=== PATIENT | male | born 1960 | race Caucasian/White ===

== ENCOUNTER 2016-05-03 13:37 | Emergency (ER) | payer OTHER ==
[2016-05-03 13:53] VITALS: RESP 16
--- NOTE | 2016-05-03 13:58 | ED ---
General Adult HPI - General Chief complaint: Head Injury Stated complaint: Etoh Time Seen by Provider: 05/03/16 13:40 Source: patient, EMS, RN notes reviewed Mode of arrival: EMS Limitations: no limitations - History of Present Illness Initial comments: This is a 56-year-old male who presents emergency Department stating he went to [facility] to go through alcohol rehabilitation. However on reevaluation he noted that he had a healing wound to his scalp and wanted him to come to the emergency department to be evaluated. Patient states he fell and hit his head on the counter to weeks ago he did not lose consciousness at that time he was bleeding from the scalp. Patient states he did not follow up with any medical evaluation at that time. Patient states he has no headache he denies any numbness weakness. Patient denies lightheadedness dizziness or near syncopal episode. Patient denies any neck pain. Patient denies any chest pain difficulty breathing shortness of breath per patient denies abdominal pain patient denies nausea vomiting or diarrhea per patient states he feels completely normal. - Related Data Allergies Allergy/AdvReac Type Severity Reaction Status Date / Time No Known Allergies Allergy Verified 05/03/16 14:01 Review of Systems ROS Statement: Those systems with pertinent positive or pertinent negative responses have been documented in the HPI. ROS Other: All systems not noted in ROS Statement are negative. Past Medical History Additional Past Medical History / Comment(s): SEASONAL ALLERGIES History of Any Multi-Drug Resistant Organisms: None Reported Past Surgical History: No Surgical Hx Reported Past Psychological History: Anxiety, Depression Smoking Status: Current every day smoker Past Alcohol Use History: Abuse Past Drug Use History: None Reported General Exam - General Exam Comments Initial Comments: GENERAL: Patient is well-developed and well-nourished. Patient is nontoxic and well- hydrated and is in no acute distress. ENT: Neck is soft and supple. No significant lymphadenopathy is noted. Oropharynx is clear. Moist mucous membranes. Neck has full range of motion without eliciting any pain. EYES: The sclera were anicteric and conjunctiva were pink and moist. Extraocular movements were intact and pupils were equal round and reactive to light. Eyelids were unremarkable. PULMONARY: Unlabored respirations. Good breath sounds bilaterally. No audible rales rhonchi or wheezing was noted. CARDIOVASCULAR: There is a regular rate and rhythm without any murmurs gallops or rubs. ABDOMEN: Soft and nontender with normal bowel sounds. No palpable organomegaly was noted. There is no palpable pulsatile mass. SKIN: There is a healing scalp laceration the occipital region a little to the left. Measures about 4 cm in length and it does appear to be healing normally didn't appears to be no signs of infection NEUROLOGIC: Patient is alert and oriented x3. Cranial nerves II through XII are grossly intact. Motor and sensory are also intact. Normal speech, volume and content. Symmetrical smile. MUSCULOSKELETAL: Normal extremities with adequate strength and full range of motion. LYMPHATICS: No significant lymphadenopathy is noted PSYCHIATRIC: Normal psychiatric evaluation. Limitations: no limitations Course Vital Signs 05/03/16 13:46 Temperature 98.1 F Pulse Rate 107 H Respiratory 16 Rate Blood Pressure 152/76 O2 Sat by Pulse 91 L Oximetry Medical Decision Making - Medical Decision Making CT of the brain and C-spine are negative for any acute abnormality. I went back and reevaluate the patient he continued to say he had no symptoms whatsoever he just wanted to be discharged to go follow-up with [facility]. Disposition Clinical Impression: Alcohol abuse, Head injury Disposition: HOME SELF-CARE Condition: Good Instructions: Head Injury (ED) Additional Instructions: Patient should follow-up with [facility] [place] Referrals: Nonstaff,Physician [Primary Care Provider] - 1-2 days Time of Disposition: 14:59
--- NOTE | 2016-05-03 14:40 | CT ---
EXAMINATION TYPE: CT brain cspine wo con DATE OF EXAM: 05/03/2016 2:23 PM COMPARISON: NONE HISTORY: 56-year-old male with ETOH and pain CT DLP: Brain (1145.10) and C-spine (581.70) mGycm Automated exposure control for dose reduction was used. Technique: Examination of the head was done in axial plane without intravenous contrast. Coronal and sagittal reconstructions performed. CT of the cervical spine was obtained in axial plane without intravenous injection of contrast mater ial. Coronal and sagittal reformatted images were obtained from the axial views for evaluation of f ractures, spinal alignment and canal. FINDINGS: Head: There is no evidence of acute intracranial hemorrhage, acute ischemic changes, mass, mass-effect, or extra-axial fluid collection. There is no effacement of cerebral sulci or basal subarachnoid cister ns. There is no hydrocephalus. There is no midline shift. Nieves-white matter distinction is preserv ed. Mild generalized supratentorial volume loss. Paranasal sinuses show mild mucosal thickening in the ethmoid air cells and maxillary sinuses. Mastoi d air cells well pneumatized. Patient's gaze is divergent. Cervical spine: Craniocervical junction are mildly, predental space widening, or prevertebral soft tissue swelling. There is normal alignment of the cervical spine. No acute fracture is identified. Moderate disc sessi on. Degenerative change mid to lower cervical spine with disc osteophyte complexes at C5-C6 and C6-C7 causing mild spinal canal stenoses. Additional scattered facet and uncovertebral joint arthropathy is present and causes variable mild to moderate neuroforaminal stenoses. Heterogeneity of the thyroid gland suggests underlying nodules, one of which is calcified on the left measuring up to 1 cm. This can be evaluated with dedicated thyroid ultrasound if indicated. Visualiz ed upper lungs show emphysematous change. Sagittal and coronal reformatted images confirm above findings. COMBINED IMPRESSION: 1. No acute intracranial abnormality seen. Mild cerebral atrophy. 2. No acute fracture or malalignment of the cervical spine. Mild to moderate spondylotic change. 3. Mild chronic maxillary and ethmoid sinus disease, divergent gaze suggesting underlying strabismus, underlying thyroid nodules which can be evaluated with nonemergent thyroid ultrasound, and emphysema .
[2016-05-03 15:26] VITALS: BP 110/59; PULSE 96; TEMP 97.6
== END 2016-05-03 15:20 | disposition home or self-care (01) ==
LOC: EC 13:37
DX: F10.10 Alcohol abuse, uncomplicated (principal); S09.90XA Unspecified injury of head, initial encounter; S01.01XA Laceration without foreign body of scalp, initial encounter; W19.XXXA Unspecified fall, initial encounter; F17.200 Nicotine dependence, unspecified, uncomplicated
CPT/HCPCS: 70450; 72125; 99284

== ENCOUNTER 2016-05-12 14:23 | Emergency (ER) | payer OTHER ==
[2016-05-12] MEDS ORDERED: SODIUM CHLORIDE 0.9% 1,000 ML IV STA (15:34)
[2016-05-12 16:01] LABS: Basophils # (A) 0.1 k/uL (0-0.2); Basophils % (A) 1 %; CH 32.6; CHCM 33.4; Eosinophils # (A) 0.1 k/uL (0-0.7); Eosinophils % (A) 1 %; HCT 44.9 % (39.0-53.0); HGB 14.2 gm/dL (13.0-17.5); Luc % (Auto) 1; Lymphocytes # (A) 0.8 k/uL (1.0-4.8); Lymphocytes % (A) 6 %; MCHC 31.7 g/dL (31.0-37.0); MCV 97.9 fL (80.0-100.0); Mean Platelet Volume 9.4; Monocytes # (A) 1.2 k/uL (0-1.0); Monocytes % (A) 9 %; Neutrophils # (A) 10.8 k/uL (1.3-7.7); Neutrophils % (A) 83 %; RBC 4.58 m/uL (4.30-5.90); RDW 14.5 % (11.5-15.5); WBC (Perox) 13.49
[2016-05-12 16:08] LABS: ALT 242 U/L (21-72); AST 109 U/L (17-59); Alkaline Phosphatase 132 U/L (38-126); Anion Gap 12 mmol/L; Blood Urea Nitrogen 21 mg/dL (9-20); Calcium 9.4 mg/dL (8.4-10.2); Carbon Dioxide 26 mmol/L (22-30); Chloride 105 mmol/L (98-107); Glucose 84 mg/dL (74-99); Non-African American GFR(MDRD) >60 (>60 ml/min/1.73 sqM); Sodium 143 mmol/L (137-145); Total Bilirubin 1.2 mg/dL (0.2-1.3); Total Protein 7.2 g/dL (6.3-8.2)
--- NOTE | 2016-05-12 16:08 | CT ---
EXAMINATION TYPE: CT brain wo con DATE OF EXAM: 05/12/2016 4:01 PM COMPARISON: Prior head CT 03 May 2016 HISTORY: History of seizures. [address] DLP: 1012.70 mGycm Automated exposure control for dose reduction was used. FINDINGS: There is no acute intracranial hemorrhage, mass effect, or midline shift identified. The ventricles and sulci are within normal limits in size. The globes are intact and the visualized sinuses are sta ble, possible mucus retention cyst in the antrum of the left maxillary sinus. Cortical atrophy and pe riventricular white matter low-attenuation are stable. IMPRESSION: No acute intracranial hemorrhage, mass effect, or midline shift is seen. Stable exam, no acute abnorm alities evident.
[2016-05-12 16:14] LABS: Potassium 4.8 mmol/L (3.5-5.1)
[2016-05-12] MEDS ORDERED: methylPREDNISolone SOD SUCCI 125 MG/2 ML VIAL IV STA (16:16)
[2016-05-12] MEDS ORDERED: IPRATROPIUM-ALBUTEROL 3 ML NEB INHALATION STA (16:16)
--- NOTE | 2016-05-12 16:17 | ED ---
General Adult HPI - General Chief complaint: Seizure Stated complaint: Seizure Time Seen by Provider: 05/12/16 14:53 Source: patient, RN notes reviewed Mode of arrival: EMS Limitations: no limitations - Related Data Home Medications Medication Instructions Recorded Confirmed Gabapentin [Neurontin] 300 mg PO BID 05/03/16 05/12/16 Ipratropium [place] [Atrovent Hfa] 2 puff INHALATION RT-BID PRN 05/03/16 Loratadine [Claritin] 10 mg PO DAILY 05/03/16 05/12/16 QUEtiapine [SEROquel] 200 mg PO HS 05/03/16 05/12/16 traZODone HCL 150 mg PO HS 05/03/16 05/12/16 Acetaminophen [Tylenol] 650 mg PO Q4H PRN 05/12/16 05/12/16 Atorvastatin [Lipitor] 20 mg PO HS 05/12/16 05/12/16 Beclomethasone Dipropionate [Qvar 1 puff INHALATION RT-BID 05/12/16 05/12/16 80 mcg] Ibuprofen [Motrin] 600 mg PO Q6H PRN 05/12/16 05/12/16 Multivitamins, Thera [Multivitamin] 1 tab PO DAILY 05/12/16 05/12/16 Ondansetron HCl [Zofran] 8 mg PO Q6H PRN 05/12/16 05/12/16 PHENobarbital [Luminal] 64.8 mg PO BID 05/12/16 05/12/16 Thiamine [Vitamin B-1] 100 mg PO DAILY 05/12/16 05/12/16 Trimethobenzamide [Tigan] 300 mg PO Q6H PRN 05/12/16 05/12/16 cloNIDine HCL [Catapres] 0.1 - 0.3 mg PO Q4H PRN 05/12/16 05/12/16 Allergies Allergy/AdvReac Type Severity Reaction Status Date / Time No Known Allergies Allergy Verified 05/12/16 15:08 Review of Systems ROS Statement: Those systems with pertinent positive or pertinent negative responses have been documented in the HPI. ROS Other: All systems not noted in ROS Statement are negative. Past Medical History Past Medical History: COPD, Hyperlipidemia, Seizure Disorder Additional Past Medical History / Comment(s): SEASONAL ALLERGIES History of Any Multi-Drug Resistant Organisms: None Reported Past Surgical History: No Surgical Hx Reported Past Psychological History: Anxiety, Depression Smoking Status: Current every day smoker Past Alcohol Use History: Abuse Past Drug Use History: None Reported General Exam Limitations: no limitations Course Vital Signs 05/12/16 05/12/16 05/12/16 14:23 15:26 16:21 Temperature 99.4 F Pulse Rate 106 H 107 H Respiratory 18 20 Rate Blood Pressure 127/66 126/73 O2 Sat by Pulse 88 L 97 97 Oximetry 05/12/16 16:38 Temperature Pulse Rate 104 H Respiratory 20 Rate Blood Pressure 131/78 O2 Sat by Pulse 97 Oximetry Medical Decision Making - Medical Decision Making Patient reexamined at this time shows no signs of distress. He denies any complaints here in the emergency room. Patient CAT scan unremarkable. Patient' s x-ray reviewed. Labs been reviewed shows 13,000 white count. Patient's AST ALT mildly bump. Patient is alcoholic is currently at [place] for alcoholism. Patient will discharged back to see [facility]. - Lab Data Result diagrams: 05/12/16 15:49 05/12/16 15:49 Lab Results 05/12/16 05/12/16 05/12/16 Range/Units 15:49 15:49 16:38 WBC 13.0 H (3.8-10.6) k/uL RBC 4.58 (4.30-5.90) m/uL Hgb 14.2 (13.0-17.5) gm/dL Hct 44.9 (39.0-53.0) % MCV 97.9 (80.0-100.0) fL MCH 31.0 (25.0-35.0) pg MCHC 31.7 (31.0-37.0) g/dL RDW 14.5 (11.5-15.5) % Plt Count 307 (150-450) k/uL Neutrophils % 83 % Lymphocytes % 6 % Monocytes % 9 % Eosinophils % 1 % Basophils % 1 % Neutrophils # 10.8 H (1.3-7.7) k/uL Lymphocytes # 0.8 L (1.0-4.8) k/uL Monocytes # 1.2 H (0-1.0) k/uL Eosinophils # 0.1 (0-0.7) k/uL Basophils # 0.1 (0-0.2) k/uL Sodium 143 (137-145) mmol/L Potassium 4.8 (3.5-5.1) mmol/L Chloride 105 (98-107) mmol/L Carbon Dioxide 26 (22-30) mmol/L Anion Gap 12 mmol/L BUN 21 H (9-20) mg/dL Creatinine 0.90 (0.66-1.25) mg/dL Est GFR (MDRD) Af Amer >60 (>60 ml/min/1.73 sqM) Est GFR (MDRD) Non-Af >60 (>60 ml/min/1.73 sqM) Glucose 84 (74-99) mg/dL Calcium 9.4 (8.4-10.2) mg/dL Total Bilirubin 1.2 (0.2-1.3) mg/dL AST 109 H (17-59) U/L ALT 242 H (21-72) U/L Alkaline Phosphatase 132 H (38-126) U/L Total Protein 7.2 (6.3-8.2) g/dL Albumin 4.1 (3.5-5.0) g/dL Urine Color Urine Appearance (Clear) Urine pH (5.0-8.0) Ur Specific [place] (1.001-1.035) Urine Protein (Negative) Urine Glucose (UA) (Negative) Urine Ketones (Negative) Urine Blood (Negative) Urine Nitrate (Negative) Urine Bilirubin (Negative) Urine Urobilinogen (<2.0) mg/dL Ur Leukocyte Esterase (Negative) Urine RBC (0-5) /hpf Urine WBC (0-5) /hpf Hyaline Casts (0-2) /lpf Urine Mucus (None) /hpf Urine Opiates Screen Not Detected (NotDetected) Ur Oxycodone Screen Not Detected (NotDetected) Urine Methadone Screen Not Detected (NotDetected) Ur Propoxyphene Screen Not Detected (NotDetected) Ur Barbiturates Screen Detected H (NotDetected) U Tricyclic Antidepress Not Detected (NotDetected) Ur Phencyclidine Scrn Not Detected (NotDetected) Ur Amphetamines Screen Not Detected (NotDetected) U Methamphetamines Scrn Not Detected (NotDetected) U Benzodiazepines Scrn Not Detected (NotDetected) Urine Cocaine Screen Not Detected (NotDetected) U Marijuana (THC) Screen Detected H (NotDetected) 05/12/16 Range/Units 16:38 WBC (3.8-10.6) k/uL RBC (4.30-5.90) m/uL Hgb (13.0-17.5) gm/dL Hct (39.0-53.0) % MCV (80.0-100.0) fL MCH (25.0-35.0) pg MCHC (31.0-37.0) g/dL RDW (11.5-15.5) % Plt Count (150-450) k/uL Neutrophils % % Lymphocytes % % Monocytes % % Eosinophils % % Basophils % % Neutrophils # (1.3-7.7) k/uL Lymphocytes # (1.0-4.8) k/uL Monocytes # (0-1.0) k/uL Eosinophils # (0-0.7) k/uL Basophils # (0-0.2) k/uL Sodium (137-145) mmol/L Potassium (3.5-5.1) mmol/L Chloride (98-107) mmol/L Carbon Dioxide (22-30) mmol/L Anion Gap mmol/L BUN (9-20) mg/dL Creatinine (0.66-1.25) mg/dL Est GFR (MDRD) Af Amer (>60 ml/min/1.73 sqM) Est GFR (MDRD) Non-Af (>60 ml/min/1.73 sqM) Glucose (74-99) mg/dL Calcium (8.4-10.2) mg/dL Total Bilirubin (0.2-1.3) mg/dL AST (17-59) U/L ALT (21-72) U/L Alkaline Phosphatase (38-126) U/L Total Protein (6.3-8.2) g/dL Albumin (3.5-5.0) g/dL Urine Color Yellow Urine Appearance Clear (Clear) Urine pH 6.0 (5.0-8.0) Ur Specific [place] 1.018 (1.001-1.035) Urine Protein 1+ H (Negative) Urine Glucose (UA) Negative (Negative) Urine Ketones Trace H (Negative) Urine Blood Negative (Negative) Urine Nitrate Negative (Negative) Urine Bilirubin Negative (Negative) Urine Urobilinogen 3.0 (<2.0) mg/dL Ur Leukocyte Esterase Negative (Negative) Urine RBC 1 (0-5) /hpf Urine WBC 1 (0-5) /hpf Hyaline Casts 12 H (0-2) /lpf Urine Mucus Rare H (None) /hpf Urine Opiates Screen (NotDetected) Ur Oxycodone Screen (NotDetected) Urine Methadone Screen (NotDetected) Ur Propoxyphene Screen (NotDetected) Ur Barbiturates Screen (NotDetected) U Tricyclic Antidepress (NotDetected) Ur Phencyclidine Scrn (NotDetected) Ur Amphetamines Screen (NotDetected) U Methamphetamines Scrn (NotDetected) U Benzodiazepines Scrn (NotDetected) Urine Cocaine Screen (NotDetected) U Marijuana (THC) Screen (NotDetected) Disposition Clinical Impression: Seizure Disposition: HOME SELF-CARE Condition: Good Instructions: Recurrent Seizures in Adults (ED) Additional Instructions: Please follow-up family doctor over the next 2 days or return here the emergency room symptoms increase or worsen or for any other concerns. Time of Disposition: 17:34
[2016-05-12 17:25] LABS: Appearance,Urine Clear (Clear); Bilirubin,Urine Negative (Negative); Glucose,Urine (UA) Negative (Negative); Ketones,Urine Trace (Negative); Leukocyte Esterase,Urine Negative (Negative); Mucus,Urine Rare /hpf; Nitrite,Urine Negative (Negative); Particle Count 3412; Protein,Urine 1+ (Negative); RBC,Urine 1 /hpf (0-5); Specific Gravity,Urine 1.018 (1.001-1.035); UA Billing (MACRO vs. MICRO) MICRO; WBC,Urine 1 /hpf (0-5)
[2016-05-12] MEDS ORDERED: IBUPROFEN 600 MG TAB PO STA (17:36)
[2016-05-12] MEDS ORDERED: NICOTINE 14MG/24HR PATCH TRANSDERM STA (17:55)
[2016-05-12 18:01] VITALS: BP 134/78; PULSE 98; RESP 20; TEMP 98.2
--- NOTE | 2016-07-10 23:32 | ED ---
Medical Decision Making - Medical Decision Making Addendum note for patient seen in the emergency room on 05/12/2016. HPI: Patient is a 56-year-old male with a significant past medical history for seizures, presenting today by EMS with recurrent seizures. Currently at a rehab facility. Patient does admit to seizures earlier today. He denies any other complaints or symptoms. Patient denies any recent fever, chills, shortness of breath, chest pain, back pain, abdominal pain, nausea or vomiting, numbness or tingling, dysuria or hematuria, constipation or diarrhea, headaches or visual changes, or any other complaints. Physical exam: General: The patient is awake and alert, in no distress, and does not appear acutely ill. Eye: Pupils are equal, round and reactive to light, extra-ocular movements are intact. No nystagmus. There is normal conjunctiva bilaterally. No signs of icterus. Ears, nose, mouth and throat: There are moist mucous membranes and no oral lesions. Neck: The neck is supple, there is no tenderness or JVD. Cardiovascular: There is a regular rate and rhythm. No murmur, rub or gallop is appreciated. Respiratory: Lungs are clear to auscultation, respirations are non-labored, breath sounds are equal. No wheezes, stridor, rales, or rhonchi. Gastrointestinal: Soft, non-distended, non-tender abdomen without masses or organomegaly noted. There is no rebound or guarding present. No CVA tenderness. Bowel sounds are unremarkable. Musculoskeletal: Normal ROM, no tenderness. Strength 5/5. Sensation intact. Pulses equal bilaterally 2+. Neurological: A&O x 3. CN II-XII intact, There are no obvious motor or sensory deficits. Coordination appears grossly intact. Speech is normal. Skin: Skin is warm and dry and no rashes or lesions are noted. Psychiatric: Cooperative, appropriate mood & affect, normal judgment. - Lab Data Result diagrams: 05/12/16 15:49 05/12/16 15:49 Lab Results 05/12/16 05/12/16 05/12/16 Range/Units 15:49 15:49 16:38 WBC 13.0 H (3.8-10.6) k/uL RBC 4.58 (4.30-5.90) m/uL Hgb 14.2 (13.0-17.5) gm/dL Hct 44.9 (39.0-53.0) % MCV 97.9 (80.0-100.0) fL MCH 31.0 (25.0-35.0) pg MCHC 31.7 (31.0-37.0) g/dL RDW 14.5 (11.5-15.5) % Plt Count 307 (150-450) k/uL Neutrophils % 83 % Lymphocytes % 6 % Monocytes % 9 % Eosinophils % 1 % Basophils % 1 % Neutrophils # 10.8 H (1.3-7.7) k/uL Lymphocytes # 0.8 L (1.0-4.8) k/uL Monocytes # 1.2 H (0-1.0) k/uL Eosinophils # 0.1 (0-0.7) k/uL Basophils # 0.1 (0-0.2) k/uL Sodium 143 (137-145) mmol/L Potassium 4.8 (3.5-5.1) mmol/L Chloride 105 (98-107) mmol/L Carbon Dioxide 26 (22-30) mmol/L Anion Gap 12 mmol/L BUN 21 H (9-20) mg/dL Creatinine 0.90 (0.66-1.25) mg/dL Est GFR (MDRD) Af Amer >60 (>60 ml/min/1.73 sqM) Est GFR (MDRD) Non-Af >60 (>60 ml/min/1.73 sqM) Glucose 84 (74-99) mg/dL Calcium 9.4 (8.4-10.2) mg/dL Total Bilirubin 1.2 (0.2-1.3) mg/dL AST 109 H (17-59) U/L ALT 242 H (21-72) U/L Alkaline Phosphatase 132 H (38-126) U/L Total Protein 7.2 (6.3-8.2) g/dL Albumin 4.1 (3.5-5.0) g/dL Urine Color Urine Appearance (Clear) Urine pH (5.0-8.0) Ur Specific [place] (1.001-1.035) Urine Protein (Negative) Urine Glucose (UA) (Negative) Urine Ketones (Negative) Urine Blood (Negative) Urine Nitrate (Negative) Urine Bilirubin (Negative) Urine Urobilinogen (<2.0) mg/dL Ur Leukocyte Esterase (Negative) Urine RBC (0-5) /hpf Urine WBC (0-5) /hpf Hyaline Casts (0-2) /lpf Urine Mucus (None) /hpf Urine Opiates Screen Not Detected (NotDetected) Ur Oxycodone Screen Not Detected (NotDetected) Urine Methadone Screen Not Detected (NotDetected) Ur Propoxyphene Screen Not Detected (NotDetected) Ur Barbiturates Screen Detected H (NotDetected) U Tricyclic Antidepress Not Detected (NotDetected) Ur Phencyclidine Scrn Not Detected (NotDetected) Ur Amphetamines Screen Not Detected (NotDetected) U Methamphetamines Scrn Not Detected (NotDetected) Phenobarbital (15-40) ug/mL U Benzodiazepines Scrn Not Detected (NotDetected) Urine Cocaine Screen Not Detected (NotDetected) U Marijuana (THC) Screen Detected H (NotDetected) 05/12/16 05/12/16 Range/Units 16:38 16:43 WBC (3.8-10.6) k/uL RBC (4.30-5.90) m/uL Hgb (13.0-17.5) gm/dL Hct (39.0-53.0) % MCV (80.0-100.0) fL MCH (25.0-35.0) pg MCHC (31.0-37.0) g/dL RDW (11.5-15.5) % Plt Count (150-450) k/uL Neutrophils % % Lymphocytes % % Monocytes % % Eosinophils % % Basophils % % Neutrophils # (1.3-7.7) k/uL Lymphocytes # (1.0-4.8) k/uL Monocytes # (0-1.0) k/uL Eosinophils # (0-0.7) k/uL Basophils # (0-0.2) k/uL Sodium (137-145) mmol/L Potassium (3.5-5.1) mmol/L Chloride (98-107) mmol/L Carbon Dioxide (22-30) mmol/L Anion Gap mmol/L BUN (9-20) mg/dL Creatinine (0.66-1.25) mg/dL Est GFR (MDRD) Af Amer (>60 ml/min/1.73 sqM) Est GFR (MDRD) Non-Af (>60 ml/min/1.73 sqM) Glucose (74-99) mg/dL Calcium (8.4-10.2) mg/dL Total Bilirubin (0.2-1.3) mg/dL AST (17-59) U/L ALT (21-72) U/L Alkaline Phosphatase (38-126) U/L Total Protein (6.3-8.2) g/dL Albumin (3.5-5.0) g/dL Urine Color Yellow Urine Appearance Clear (Clear) Urine pH 6.0 (5.0-8.0) Ur Specific [place] 1.018 (1.001-1.035) Urine Protein 1+ H (Negative) Urine Glucose (UA) Negative (Negative) Urine Ketones Trace H (Negative) Urine Blood Negative (Negative) Urine Nitrate Negative (Negative) Urine Bilirubin Negative (Negative) Urine Urobilinogen 3.0 (<2.0) mg/dL Ur Leukocyte Esterase Negative (Negative) Urine RBC 1 (0-5) /hpf Urine WBC 1 (0-5) /hpf Hyaline Casts 12 H (0-2) /lpf Urine Mucus Rare H (None) /hpf Urine Opiates Screen (NotDetected) Ur Oxycodone Screen (NotDetected) Urine Methadone Screen (NotDetected) Ur Propoxyphene Screen (NotDetected) Ur Barbiturates Screen (NotDetected) U Tricyclic Antidepress (NotDetected) Ur Phencyclidine Scrn (NotDetected) Ur Amphetamines Screen (NotDetected) U Methamphetamines Scrn (NotDetected) Phenobarbital 8.0 L (15-40) ug/mL U Benzodiazepines Scrn (NotDetected) Urine Cocaine Screen (NotDetected) U Marijuana (THC) Screen (NotDetected) Disposition Clinical Impression: Seizure Disposition: HOME SELF-CARE Condition: Good Instructions: Recurrent Seizures in Adults (ED) Additional Instructions: Please follow-up family doctor over the next 2 days or return here the emergency room symptoms increase or worsen or for any other concerns. Referrals: None,Stated [Primary Care Provider] - 1-2 days
== END 2016-05-12 18:03 | disposition home or self-care (01) ==
LOC: EC 14:23
DX: G40.909 Epilepsy, unspecified, not intractable, without status epilepticus (principal); J44.9 Chronic obstructive pulmonary disease, unspecified; E78.5 Hyperlipidemia, unspecified; F41.9 Anxiety disorder, unspecified; F32.9 Major depressive disorder, single episode, unspecified; Z79.899 Other long term (current) drug therapy; Z79.51 Long term (current) use of inhaled steroids
CPT/HCPCS: 36415; 93005; 80053; 85025; 81001; 80184; 80306; 70450; 99285; 96361; 96360; S4990

== ENCOUNTER 2016-05-13 03:52 | Emergency (ER) | payer OTHER ==
[2016-05-13] MEDS ORDERED: LORazepam 2 MG/ML SYRINGE IV STA (04:09)
--- NOTE | 2016-05-13 04:11 | ED ---
General Adult HPI - General Chief complaint: Seizure Stated complaint: seizure Time Seen by Provider: 05/13/16 04:00 Source: patient, EMS, RN notes reviewed Mode of arrival: EMS Limitations: no limitations - History of Present Illness Initial comments: This is a 56-year-old male with past medical history significant for alcohol abuse. Patient was at rehab facility he had a seizure earlier today and was brought into the emergency department. Patient went back to the facility and supposedly had another seizure tonight. Patient has no complaints now. Patient states he has had seizures in the past. He believes is related to drinking. Patient states he is not on any antiseizure medications. Patient denies headache patient denies numbness weakness. Patient denies any chest pain difficulty breathing shortness of breath. Patient denies any abdominal pain patient denies nausea vomiting diarrhea per patient denies any recent fever chills or cough. - Related Data Home Medications Medication Instructions Recorded Confirmed Gabapentin [Neurontin] 300 mg PO BID 05/03/16 05/13/16 Ipratropium [place] [Atrovent Hfa] 2 puff INHALATION RT-BID PRN 05/03/16 Loratadine [Claritin] 10 mg PO DAILY 05/03/16 05/13/16 QUEtiapine [SEROquel] 200 mg PO HS 05/03/16 05/13/16 traZODone HCL 150 mg PO HS 05/03/16 05/13/16 Acetaminophen [Tylenol] 650 mg PO Q4H PRN 05/12/16 05/13/16 Atorvastatin [Lipitor] 20 mg PO HS 05/12/16 05/13/16 Beclomethasone Dipropionate [Qvar 1 puff INHALATION RT-BID 05/12/16 05/13/16 80 mcg] Ibuprofen [Motrin] 600 mg PO Q6H PRN 05/12/16 05/13/16 Multivitamins, Thera [Multivitamin] 1 tab PO DAILY 05/12/16 05/13/16 Ondansetron HCl [Zofran] 8 mg PO Q6H PRN 05/12/16 05/13/16 PHENobarbital [Luminal] 64.8 mg PO BID 05/12/16 05/13/16 Thiamine [Vitamin B-1] 100 mg PO DAILY 05/12/16 05/13/16 Trimethobenzamide [Tigan] 300 mg PO Q6H PRN 05/12/16 05/13/16 cloNIDine HCL [Catapres] 0.1 - 0.3 mg PO Q4H PRN 05/12/16 05/13/16 Allergies Allergy/AdvReac Type Severity Reaction Status Date / Time No Known Allergies Allergy Verified 05/13/16 04:08 Review of Systems ROS Statement: Those systems with pertinent positive or pertinent negative responses have been documented in the HPI. ROS Other: All systems not noted in ROS Statement are negative. Past Medical History Past Medical History: COPD, Hyperlipidemia, Seizure Disorder Additional Past Medical History / Comment(s): SEASONAL ALLERGIES History of Any Multi-Drug Resistant Organisms: None Reported Past Surgical History: No Surgical Hx Reported Past Psychological History: Anxiety, Depression Smoking Status: Current every day smoker Past Alcohol Use History: Abuse, Daily, Heavy Past Drug Use History: None Reported General Exam - General Exam Comments Initial Comments: GENERAL: Patient is well-developed and well-nourished. Patient is nontoxic and well- hydrated and is in no acute distress. ENT: Neck is soft and supple. No significant lymphadenopathy is noted. Oropharynx is clear. Moist mucous membranes. Neck has full range of motion without eliciting any pain. EYES: The sclera were anicteric and conjunctiva were pink and moist. Extraocular movements were intact and pupils were equal round and reactive to light. Eyelids were unremarkable. PULMONARY: Unlabored respirations. Good breath sounds bilaterally. No audible rales rhonchi or wheezing was noted. CARDIOVASCULAR: There is a regular rate and rhythm without any murmurs gallops or rubs. ABDOMEN: Soft and nontender with normal bowel sounds. No palpable organomegaly was noted. There is no palpable pulsatile mass. SKIN: Skin is clear with no lesions or rashes and otherwise unremarkable. NEUROLOGIC: Patient is alert and oriented x3. Cranial nerves II through XII are grossly intact. Motor and sensory are also intact. Normal speech, volume and content. Symmetrical smile. MUSCULOSKELETAL: Normal extremities with adequate strength and full range of motion. No lower extremity swelling or edema. No calf tenderness. LYMPHATICS: No significant lymphadenopathy is noted PSYCHIATRIC: Normal psychiatric evaluation. Limitations: no limitations Course Vital Signs 05/13/16 05/13/16 04:05 04:56 Temperature 99.3 F Pulse Rate 116 H 101 H Respiratory 18 18 Rate Blood Pressure 147/72 120/67 O2 Sat by Pulse 92 L 98 Oximetry Medical Decision Making - Medical Decision Making Patient's EKG shows sinus tachycardia at 107 bpm W[place] interval is 170 QRS is 142 QT interval 362 QTC is 483. Patient's EKG shows no ST segment elevation or depression patient does have a right bundle branch block. Shoulder x-ray shows no acute abnormality. Chest x-ray shows no acute abnormality. - Lab Data Result diagrams: 05/13/16 03:58 05/13/16 03:58 Lab Results 05/13/16 05/13/16 Range/Units 03:58 03:58 WBC 8.7 (3.8-10.6) k/uL RBC 4.11 L (4.30-5.90) m/uL Hgb 13.2 (13.0-17.5) gm/dL Hct 39.4 (39.0-53.0) % MCV 95.9 (80.0-100.0) fL MCH 32.1 (25.0-35.0) pg MCHC 33.5 (31.0-37.0) g/dL RDW 14.5 (11.5-15.5) % Plt Count 277 (150-450) k/uL Neutrophils % (Manual) 68.0 % Lymphocytes % (Manual) 13.0 % Monocytes % (Manual) 18.0 % Eosinophils % (Manual) 1.0 % Neutrophils # (Manual) 5.9 (1.3-7.7) k/uL Lymphocytes # (Manual) 1.1 (1.0-4.8) k/uL Monocytes # (Manual) 1.6 H (0-1.0) k/uL Eosinophils # (Manual) 0.1 (0-0.7) k/uL Nucleated RBCs 0 (0-0) /100 WBC Manual Slide Review Performed Sodium 137 (137-145) mmol/L Potassium 3.8 (3.5-5.1) mmol/L Chloride 103 (98-107) mmol/L Carbon Dioxide 26 (22-30) mmol/L Anion Gap 8 mmol/L BUN 17 (9-20) mg/dL Creatinine 0.80 (0.66-1.25) mg/dL Est GFR (MDRD) Af Amer >60 (>60 ml/min/1.73 sqM) Est GFR (MDRD) Non-Af >60 (>60 ml/min/1.73 sqM) Glucose 87 (74-99) mg/dL Calcium 8.8 (8.4-10.2) mg/dL Total Bilirubin 0.8 (0.2-1.3) mg/dL AST 67 H (17-59) U/L ALT 203 H (21-72) U/L Alkaline Phosphatase 134 H (38-126) U/L Total Protein 6.3 (6.3-8.2) g/dL Albumin 3.6 (3.5-5.0) g/dL Phenytoin <3.0 ug/mL Disposition Clinical Impression: Generalized seizure, Alcohol abuse Disposition: HOME SELF-CARE Condition: Good Instructions: Recurrent Seizures in Adults (ED) Referrals: Nonstaff,Physician [Primary Care Provider] - 1-2 days Time of Disposition: 05:02
[2016-05-13 04:27] LABS: CH 32.3; Mean Platelet Volume 9.2; RDW 14.5 % (11.5-15.5)
[2016-05-13 04:31] LABS: ALT 203 U/L (21-72); AST 67 U/L (17-59); Alkaline Phosphatase 134 U/L (38-126); Anion Gap 8 mmol/L; Blood Urea Nitrogen 17 mg/dL (9-20); Calcium 8.8 mg/dL (8.4-10.2); Carbon Dioxide 26 mmol/L (22-30); Chloride 103 mmol/L (98-107); Glucose 87 mg/dL (74-99); Non-African American GFR(MDRD) >60 (>60 ml/min/1.73 sqM); Potassium 3.8 mmol/L (3.5-5.1); Sodium 137 mmol/L (137-145); Total Bilirubin 0.8 mg/dL (0.2-1.3); Total Protein 6.3 g/dL (6.3-8.2)
[2016-05-13 04:34] LABS: CHCM 33.8; HCT 39.4 % (39.0-53.0); HDW 2.31; HGB 13.2 gm/dL (13.0-17.5); MCH 32.1 pg (25.0-35.0); MCHC 33.5 g/dL (31.0-37.0); MCV 95.9 fL (80.0-100.0); RBC 4.11 m/uL (4.30-5.90); WBC 8.7 k/uL (3.8-10.6); WBC (Perox) 8.11
[2016-05-13 04:48] LABS: Add Differential Manual Differential
[2016-05-13 04:49] LABS: Manual Review Performed; Nucleated Red Blood Cells 0 /100 WBC (0-0); Total Cells Counted 100
--- NOTE | 2016-05-13 05:09 | XR ---
EXAMINATION TYPE: XR chest 2V DATE OF EXAM: 05/13/2016 4:50 AM COMPARISON: NONE HISTORY: History of seizure and COPD TECHNIQUE: Frontal and lateral views of the chest are obtained. FINDINGS: There is no focal air space opacity, pleural effusion, or pneumothorax seen. The cardiac silhouette size is within normal limits. The osseous structures are intact. IMPRESSION: 1. No focal pneumonia.
--- NOTE | 2016-05-13 05:25 | XR ---
EXAMINATION TYPE: XR shoulder complete LT DATE OF EXAM: 05/13/2016 5:16 AM CLINICAL HISTORY: pain after fall 2 days ago. COMPARISON: NONE TECHNIQUE: Three views of the left shoulder are obtained. FINDINGS: There is no acute fracture/dislocation evident. [id number] degenerative arthritic ch anges are present in the left glenohumeral and the left acromioclavicular joint. A small bone density of 1.5 cm is noted in the inferior aspect of glenoid fossa in the AP view and is probably related to old fracture fragment or benign calcification.. The visualized ribs are intact and unremarkable. IMPRESSION: 1. There is no acute fracture or dislocation. 2. 1.5 cm bone density in the inferior aspect of left shoulder joint is probably related to old fract ure changes or soft tissue calcification or lymph node calcification. It may also represent calcifie d lymph node.. 3. Mild to moderate arthritic changes in the left shoulder. ICD 10 NO FRACTURE, INITIAL EVALUATION
[2016-05-13 08:27] VITALS: BP 131/74; PULSE 92; RESP 16; TEMP 98.3
== END 2016-05-13 08:00 | disposition home or self-care (01) ==
LOC: EC 03:52
DX: G40.909 Epilepsy, unspecified, not intractable, without status epilepticus (principal); F10.10 Alcohol abuse, uncomplicated; J44.9 Chronic obstructive pulmonary disease, unspecified; E78.5 Hyperlipidemia, unspecified; F41.9 Anxiety disorder, unspecified; F32.9 Major depressive disorder, single episode, unspecified; F17.200 Nicotine dependence, unspecified, uncomplicated; Z79.51 Long term (current) use of inhaled steroids; Z79.899 Other long term (current) drug therapy
CPT/HCPCS: 36415; 93005; 80053; 80185; 85025; 71020; 73030; 99285; 96374; J2060